=== PATIENT | male | born 1980 | race Caucasian/White ===

== ENCOUNTER 2017-03-27 05:23 | Emergency (ER) | payer OTHER ==
--- NOTE | ~2017-03-27 | CT4 ---
[facility] A Service of [facility] RADIOLOGY TEXT RESULTS PATIENT: HUNTER SAM LOCATION: [facility] : [facility] UNIT #: [id number] AGE: [address]: Perico Baker MD SEX: M ORDER DR: [id number] [facility] [address] [place], [place] [address] [id number] MR#: [id number] Acc #: [id number] NAME: HUNTER SAM. : 1980 SEX: M STUDY DATE/TIME: 03/27/2017 6:35 UNIT: [facility] ROOM: STUDY DESCRIPTION: CT Abd and Pelv Wo Cont Attending Physician: Perico Baker M.D. Ordering Physician: Guillermo Barros D.O. Primary Care Physician: Primary Care Physician No MEDICAL IMAGING REPORT This report is preliminary unless electronic signature is present EXAM CT abdomen and pelvis without contrast 03/27/17 PROCEDURE: Axial CT abdomen and pelvis without contrast with multiplanar reformats. The CT exam was performed with one or more of the following radiation dose reduction techniques: automatic exposure control, adjustment of mA and/or kV according to patient size, and iterative reconstruction. COMPARISON: Prior CT dated 03/03/2014 CLINICAL HISTORY One day history of right lower quadrant abdominal pain. FINDINGS The lung bases are normal. ABDOMEN: Unenhanced images of the liver and gallbladder are normal. The spleen and pancreas are normal. The kidneys and adrenal glands are normal. The aorta is normal in caliber. PELVIA: The appendix is normal. There is no pelvic mass or inflammatory change or abnormal fluid collection. There is no hernia or bowel obstruction. There is mild spinal degenerative change but no acute bony abnormality. IMPRESSION 1. Normal negative unenhanced CT abdomen and pelvis. Normal appendix, no renal or bowel or biliary obstruction. No nephro or STS. [facility] A Service [facility] RADIOLOGY TEXT RESULTS PATIENT: HUNTER SAM LOCATION: [facility] : [facility] UNIT #: [id number] AGE: [address]: Perico Baker MD SEX: M ORDER DR: ureterolithiasis. 2. Incidental note made of a retroaortic left renal vein as a normal anatomic variant. Dictated by... Chriss Kidd M.D. THIS IS AN ELECTRONICALLY VERIFIED REPORT Chriss Kidd M.D. at 03/27/2017 3:52 PM ELIZABETH/cristi TD: 03/27/2017 11:15 JOB #: [id number] MEDICAL IMAGING REPORT Page 1 of 1 COPY
[~2017-03-27 05:23] MED LIST: ALLEGRA60 MG PO; BENADRYL25 M1 PO; FLEXERIL PO; LORCET 10/650 T1 TAB PO; LORTAB 7.5-5001 TAB PO; NAPROXEN PO; PHENERGAN25 MG PO; TYLOX 5/500 CAP1 CAP PO; VOLTAREN50 MG PO; ZOFRAN PO
[2017-03-27 06:28] LABS: URINE SOURCE CLEAN CATCH
[2017-03-27 06:29] LABS: BASOPHIL% 0.3 % (0-2.5); EOSINOPHIL# 0.1 X10e3 (0-0.7); EOSINOPHIL% 0.5 % (0.0-7.0); HEMATOCRIT 42.2 % (38.0-50.0); HEMOGLOBIN 14.7 gm/dL (13.0-16.0); LYMPHOCYTE# 1.3 X10e3 (1.0-3.5); LYMPHOCYTE% 13.1 % (17.0-45.0); MEAN CELL VOLUME 88.4 FL (83-96); MEAN CORPUSCULAR HEMOGLOBIN 30.8 PG (28-34); MEAN CORPUSCULAR HGB CONC 34.8 g/dL (30-36); MONOCYTE# 0.7 X10e3 (0-1.0); MONOCYTE% 7.1 % (3.0-12.0); NEUTROPHIL# 7.7 X10e3 (1.5-7.1); PLATELET COUNT 195 X10e3 (140-420); RED BLOOD COUNT 4.78 X10e (3.90-5.60); RED CELL DISTRIBUTION WIDTH 13.8 % (11.0-15.5); WHITE BLOOD COUNT 9.8 X10e3 (4.0-10.5)
[2017-03-27 06:31] LABS: DIFF IND NO
[2017-03-27 06:40] LABS: URINE APPEARANCE CLEAR; URINE BILIRUBIN NEG (NEG); URINE BLOOD 2+ (NEG); URINE COLOR YELLOW; URINE GLUCOSE NEG (NEG); URINE KETONE NEG (NEG); URINE LEUKOCYTE ESTERASE NEG (NEG); URINE NITRATE NEG (NEG); URINE PH 5.5 (5-8); URINE PROTEIN NEG (NEG); URINE SPECIFIC GRAVITY 1.014 (1.003-1.035); URINE UROBILINOGEN 0.2 MG/DL (NEG)
[2017-03-27 06:42] LABS: URINE BACTERIA AUWI NEG (NEGATIVE); URINE SQUAMOUS EPITHELIAL CELL NONE SEEN /[HPF]; UWBCS1 AUWI 0-2 (0-5)
[2017-03-27 06:45] LABS: CULTURE INDICATED? NO
[2017-03-27 06:56] LABS: ALBUMIN SERUM 4.3 g/dL (3.5-5.0); BILIRUBIN,TOTAL 0.3 mg/dL (0.2-2.0); GLOM FILT RATE Estimated 97.1 mL/min (>60); POTASSIUM 3.7 mmol/L (3.5-5.1); PROTEIN TOTAL SERUM 6.5 g/dL (6.0-8.3)
[2017-03-27 06:57] LABS: BILIRUBIN, DIRECT 0.1 mg/dL (0.0-0.2); BILIRUBIN,INDIRECT 0.2 mg/dL (0.0-0.9)
== END 2017-03-27 08:22 | disposition home or self-care (01) ==
LOC: CED 05:23
PROVIDERS: Emergency Medicine
DX: K85.00 Idiopathic acute pancreatitis without necrosis or infection (principal); F17.200 Nicotine dependence, unspecified, uncomplicated; Z79.899 Other long term (current) drug therapy
CPT/HCPCS: 36415; 74176; 80048; 80076; 81003; 83690; 85025; 96374; 96375; 99284; J1885; J2405